=== PATIENT | female | born 1995 | race African-American/Black ===

== ENCOUNTER 2017-06-25 20:01 | Emergency (ER) | payer OTHER ==
[2017-06-25 20:09] VITALS: BP 121/63; PULSE 65; TEMP 98.4; BMI 32.7
--- NOTE | 2017-06-25 21:33 | PDOC ---
History of Present Illness - History of Present Illness Initial Comments: 06/25/17 21:55 The patient is a 22 year old female, with no significant past medical history of , who presents to the emergency department with dizziness and fatigue for 3 days. Patient stated that she has been feeling like this since three days ago, briefly stopped, and came back around 3 pm today. Patient stated that she felt tired and unable to move around with sudden onset. SHe took a nap hoping her symptoms would improve however they worsened and she came to the emergency room. Patient states pain does not worsen or improve when she changes positions from sitting to standing. Patient also states RLQ tenderness upon palpation. No noticeable rash or insect bite. Denies being in a wooded area. She denies recent fevers, chills, headache. She denies recent nausea, vomit, diarrhea or constipation. She denies recent dysuria, frequency, urgency or hematuria. She denies recent chest pain or shortness of breath. Allergies: NKA Past surgical history: None reported. Social history: Nonsmoker. Denies EtOH use and recreational drug use. Primary Care Physician: 06/25/17 22:00 <Faustina Dalton - Last Filed: 06/25/17 22:02> <Olivia Villaseñor - Last Filed: 06/26/17 03:08> - General Chief Complaint: Lightheaded Stated Complaint: LIGHTHEADED TODAY Time Seen by Provider: 06/25/17 20:03 Past History <Faustina Dalton - Last Filed: 06/25/17 22:02> - Past Medical History Other medical history: DENIES - Immunization History Immunization Up to Date: Yes - Suicide/Smoking/Psychosocial Hx Smoking History: Never smoked Have you smoked in the past 12 months: No Information on smoking cessation initiated: No Hx Alcohol Use: No Drug/Substance Use Hx: No Substance Use Type: None <Olivia Villaseñor - Last Filed: 06/26/17 03:08> - Past Medical History Allergies/Adverse Reactions: Allergies Allergy/AdvReac Type Severity Reaction Status Date / Time No Known Allergies Allergy Verified 06/25/17 20:03 Home Medications: Ambulatory Orders NK [No Known Home Medication] 08/09/16 Review of Systems - Review of Systems Comments:: 06/25/17 21:58 GENERAL/CONSTITUTIONAL: No fever or chills. No weakness. HEAD, EYES, EARS, NOSE AND THROAT: No change in vision. No ear pain or discharge. No sore throat. CARDIOVASCULAR: No chest pain or shortness of breath. RESPIRATORY: No cough, wheezing, or hemoptysis. GASTROINTESTINAL: + mild rlq tenderness upon palpation.No nausea, vomiting, diarrhea or constipation. GENITOURINARY: No dysuria, frequency, or change in urination. MUSCULOSKELETAL: No joint or muscle swelling or pain. No neck or back pain. SKIN: No rash NEUROLOGIC: No headache, vertigo, loss of consciousness, or change in strength/ sensation. ENDOCRINE: No increased thirst. No abnormal weight change. HEMATOLOGIC/LYMPHATIC: No anemia, easy bleeding, or history of blood clots. ALLERGIC/IMMUNOLOGIC: No hives or skin allergy. <Faustina Dalton - Last Filed: 06/25/17 22:02> *Physical Exam - Vital Signs Last Vital Signs Temp Pulse Resp BP Pulse Ox 98.4 F 65 16 121/63 100 06/25/17 20:05 06/25/17 20:05 06/25/17 20:05 06/25/17 20:05 06/25/17 20:05 - Physical Exam Comments: 06/25/17 21:56 GENERAL: Awake, alert, and fully oriented, in no acute distress HEAD: No signs of trauma EYES: PERRLA, EOMI, sclera anicteric, conjunctiva clear ENT: Auricles normal inspection, hearing grossly normal, nares patent, oropharynx clear without exudates. Moist mucosa NECK: Normal ROM, supple, no lymphadenopathy, JVD, or masses LUNGS: Breath sounds equal, clear to auscultation bilaterally. No wheezes, and no crackles HEART: Regular rate and rhythm, normal S1 and S2, no murmurs, rubs or gallops ABDOMEN: + Mild RLQ tenderness upon palpation. Soft, normoactive bowel sounds. No guarding, no rebound. No masses EXTREMITIES: Normal range of motion, no edema. No clubbing or cyanosis. No cords, erythema, or tenderness NEUROLOGICAL: Cranial nerves II through XII grossly intact. Normal speech, normal gait SKIN: Warm, Dry, normal turgor, no rashes or lesions noted. 06/25/17 21:58 <Faustina Dalton - Last Filed: 06/25/17 22:02> - Vital Signs Last Vital Signs Temp Pulse Resp BP Pulse Ox 98.4 F 65 16 121/63 100 06/25/17 20:05 06/25/17 20:05 06/25/17 20:05 06/25/17 20:05 06/25/17 20:05 <Olivia Villaseñor - Last Filed: 06/26/17 03:08> ED Treatment Course - LABORATORY CBC & Chemistry Diagram: 06/25/17 21:50 06/25/17 21:50 <Faustina Dalton - Last Filed: 06/25/17 22:02> - LABORATORY CBC & Chemistry Diagram: 06/25/17 21:50 06/25/17 21:50 <Olivia Villaseñor - Last Filed: 06/26/17 03:08> Medical Decision Making - Medical Decision Making Documentation has been prepared under my direction and personally reviewed by me in its entirety. I attest that this documented accurately reflects all work, treatment, procedures and medical decision making performed by me. As noted above, this 22-year-old woman without significant past medical history presents with a few day history of fatigue/lightheadedness. No other specific complaints noted. Patient describes no risk factors for occult infection such as tickborne disease/mosquito related illness. No sore throat or fever noted. There is been no myalgias/arthralgias. Exam as noted is normal. CBC/chemistry profile/urinalysis/UCG were sent. Laboratory evaluation is essentially normal. There is borderline prerenal azotemia; patient is not clinically dehydrated. Results discussed with the patient. Since patient is a college student living in a dormitory, she is at some risk for jennifer viral illness. She has been encouraged to get plenty of rest , as well as drinking plenty of fluids, eating regular meals. She should return to the emergency room if she has persistent severe symptoms. Otherwise, she should follow-up with her general medical doctor on [place], when she returns home from school <Olivia Villaseñor - Last Filed: 06/26/17 03:08> *DC/Admit/Observation/Transfer - Attestations Scribe Attestion: 06/25/17 22:02 Documentation prepared by Faustina Dalton, acting as emergency medical technician for Olivia Villaseñor MD. <Faustina Dalton - Last Filed: 06/25/17 22:02> <Olivia Villaseñor - Last Filed: 06/26/17 03:08> Diagnosis at time of Disposition: Fatigue Qualifiers: Fatigue type: unspecified Qualified Code(s): R53.83 - Other fatigue - Discharge Dispostion Disposition: HOME Condition at time of disposition: Stable - Patient Instructions Printed Discharge Instructions: DI for Fatigue Additional Instructions: Eat regular meals and drink plenty of water Try to get plenty of sleep Return to ER if you have worsening abdominal pain or experience fever/vomiting Follow-up with your general medical doctor when you return home
[2017-06-25 22:03] LABS: PH,URINE 5.5 (4.5-8); URINE APPEARANCE Clear; URINE BILIRUBIN Negative (NEGATIVE); URINE BLOOD 1+ (NEGATIVE); URINE COLOR YELLOW; URINE GLUCOSE (UA) Negative (NEGATIVE); URINE KETONE Negative (NEGATIVE); URINE LEUK ESTERASE TRACE (NEGATIVE); URINE NITRITE Negative (NEGATIVE); URINE PROTEIN Negative (NEGATIVE); URINE UROBILINOGEN 0.2 (0.2-1.0)
[2017-06-25 22:03] LABS: BASOPHIL 2.1 % (0-2.0); EOSINOPHIL 4.4 % (0-4.5); MCH 28.9 pg (25.7-33.7); MCHC 33.2 g/dl (32.0-36.0); MEAN PLT VOLUME 9.1 fl (7.5-11.1); NEUTROPHILS 47.9 % (42.8-82.8); PLATELET COUNT 258 K/MM3 (134-434); RDW 12.2 % (11.6-15.6); WHITE BLOOD COUNT 7.6 K/mm3 (4.0-10.8)
[2017-06-25 22:12] LABS: URINE WBC 0-2 (3-5)
[2017-06-25 22:22] LABS: ALBUMIN 3.9 g/dl (3.5-5.0); ALK PHOS 66 U/L (32-92); ANION GAP 5 (8-16); BILIRUBIN,TOTAL 0.2 mg/dl (0.2-1.0); CALCIUM 8.8 mg/dl (8.4-10.2); CO2 26 mmol/L (22-28); CREATININE 0.7 mg/dl (0.6-1.3); GLUCOSE,RANDOM 82 mg/dl (74-106); SGOT/AST 22 U/L (10-42); SGPT/ALT 15 U/L (10-40); TOT PROT 7.7 g/dl (6.4-8.3)
== END 2017-06-25 23:25 | disposition home or self-care (01) ==
LOC: FER 20:01
DX: R53.83 Other fatigue (principal)
CPT/HCPCS: 36415; 80053; 81003; 81015; 84703; 85025; 99281-25

== ENCOUNTER 2018-07-15 13:53 | Emergency (ER) | payer OTHER ==
[2018-07-15 14:09] VITALS: BP 114/93; PULSE 70; TEMP 97.6; BMI 31.1
[2018-07-15] MEDS ORDERED: ONDANSETRON 4 MG/2 ML VIAL IVPB ONE (14:50)
[2018-07-15] MEDS ORDERED: SODIUM CHLORIDE 1,000 ML IV ONE (14:50)
[2018-07-15] MEDS ORDERED: KETOROLAC TROMETHAMINE 30 MG/1 ML VIAL IVPUSH ONE (14:50)
--- NOTE | 2018-07-15 14:57 | PDOC ---
History of Present Illness - General Chief Complaint: Pain Stated Complaint: CRAMPS Time Seen by Provider: 07/15/18 14:44 History Source: Patient Exam Limitations: No Limitations - History of Present Illness Travel History: No Initial Comments: 07/15/18 14:50 23y F hx of bad menstrual cramps presents with complaint of cramps. pt notse she has severe cramps, is on toradol for the pain, has been controled with toradol for the past 2 years. notse sh was fine utnil yesterday, had mild ' precramps' lastnight, this morning, the pain worsened significantly, and is nintermittent, cramping, and similar to previous episodes. endorses vomiting/ nausea, denies any fever/chills, vag discharge, darrhea, melena, upper abd pain. the pain is in the suprapubic ragion and radiates b/l in her lower abd. no back pain pt currently having her menses Constitutional - no reported Fever, Chills, HEENT: no reported vision changes, sore throat Respiratory: no reported cough, sob, hemoptysis Cardiac: no reported chest pain, palpitations, light headedness, leg swelling Abd/GI: +abd pain, nausea, vomiting, no reported blood per rectum, melena, diarrhea : no reported dysuria, frequency, discharge Musculskelatal - no reported back pain, joint swelling skin - no reported bruising, erythema, rash neurological: no reported headache, numbness, focal weakness, tingling, ataxia, hematologic: no reported easy bruising, easy bleeding GENERAL: The patient is awake, alert, and fully oriented, Nontoxic - in no acute distress. HEAD: Normocephalic, atraumatic. EYES: extraocular movements intact, sclera anicteric, conjunctiva clear. ENT: Normal voice, Moist mucous membranes. NECK: Normal range of motion, supple LUNGS: Breath sounds equal, clear to auscultation bilaterally. No wheezes, no rhonchi, no rales. HEART: Regular rate and rhythm, normal S1 and S2 without murmur, rub or gallop. ABDOMEN: Soft, mild suprapubic tendernessNo guarding, no rebound. EXTREMITIES: Normal range of motion, no edema. NEUROLOGICAL: No facial assymetry, Normal speech, PSYCH: Normal mood, normal affect. SKIN: Warm, Dry, normal turgor, suspect menstrual cramps as th epain is similar to previous no focal tenderness or fever to suggest acute intrabodlminal infection such as appendicitis/diverticulitis will give pt toradol, fluids zofran willck basic labs will r/o Past History - Past Medical History Allergies/Adverse Reactions: Allergies Allergy/AdvReac Type Severity Reaction Status Date / Time No Known Allergies Allergy Verified 07/15/18 13:54 Home Medications: Ambulatory Orders Ketorolac Tromethamine [Toradol] 15 mg PO PRN PRN 07/15/18 COPD: No - Reproductive History Is Patient Now?: (DENIES) (#): 0 Para: 0 Polycystic Ovaries: Yes - Immunization History Immunization Up to Date: Yes - Suicide/Smoking/Psychosocial Hx Smoking History: Never smoked Have you smoked in the past 12 months: No Information on smoking cessation initiated: No Hx Alcohol Use: No Drug/Substance Use Hx: No Substance Use Type: None *Physical Exam - Vital Signs Last Vital Signs Temp Pulse Resp BP Pulse Ox 97.6 F 70 20 114/93 100 07/15/18 13:53 07/15/18 13:53 07/15/18 13:53 07/15/18 13:53 07/15/18 13:53 ED Treatment Course - LABORATORY CBC & Chemistry Diagram: 07/15/18 15:37 07/15/18 15:37 Medical Decision Making - Medical Decision Making 07/15/18 16:51 pt feelin gimproved UA not suggestive of UTI not abd soft nontnder no longer vomiting will have pt fu wth intake man return precautions were discussed I discussed the physical exam findings, ancillary test results and final diagnoses with the patient. I answered all of the patient's questions. The patient was satisfied with the care received and felt comfortable with the discharge plan and treatment plan. The patient will call their primary care physician within 24 hours to arrange follow-up and will return to the Emergency Department with any new, persistent or worsening symptoms. *DC/Admit/Observation/Transfer Diagnosis at time of Disposition: Menses painful - Discharge Dispostion Disposition: HOME Condition at time of disposition: Improved Decision to Admit order: No - Referrals Referrals: Eugene RUEDA [Other] - Patient Instructions Printed Discharge Instructions: DI for Dysmenorrhea Additional Instructions: Please follow up with your obgyn doctor for further evalution of your severe menstrual cramping. Return if you have worsening pain, fever/chills, vomiting, or other concerns. Print Language: OCCITAN - Post Discharge Activity
[2018-07-15] MEDS ORDERED: KETOROLAC TROMETHAMINE 30 MG/1 ML VIAL ONE (15:33)
[2018-07-15] MEDS ORDERED: ONDANSETRON 4 MG/2 ML VIAL ONE (15:33)
[2018-07-15 15:52] LABS: BASO % 0.8 % (0-2.0); EOS % 1.7 % (0-4.5); HEMATOCRIT 38.4 % (32.4-45.2); HEMOGLOBIN 12.3 GM/dl (10.7-15.3); LYMPH % 22.1 % (8-40); MCH 27.7 pg (25.7-33.7); MEAN CELL VOLUME 86.7 fl (80-96); MEAN PLT VOLUME 9.5 fl (7.5-11.1); MONO % 6.9 % (3.8-10.2); NEUT % 68.5 % (42.8-82.8); PLATELET COUNT 244 K/MM3 (134-434); RBC 4.43 M/mm3 (3.60-5.2); RDW 12.4 % (11.6-15.6)
[2018-07-15 16:00] LABS: ALK PHOS 71 U/L (32-92); ANION GAP 6 MMOL/L (8-16); BILIRUBIN,TOTAL 0.4 mg/dl (0.2-1.0); BLOOD UREA NITROGEN 7 mg/dl (7-18); CALCIUM 8.7 mg/dl (8.4-10.2); CHLORIDE 105 mmol/L (98-107); CO2 25 mmol/L (22-28); CREATININE 0.7 mg/dl (0.6-1.3); GLUCOSE,RANDOM 94 mg/dl (74-106); POTASSIUM 3.4 mmol/L (3.5-5.1); SGOT/AST 23 U/L (10-42); SGPT/ALT 18 U/L (10-40); SODIUM 136 mmol/L (136-145); TOT PROT 8.1 g/dl (6.4-8.3)
[2018-07-15 16:46] LABS: PH,URINE 8.5 (4.5-8); URINE APPEARANCE Cloudy; URINE BILIRUBIN Negative (NEGATIVE); URINE COLOR Brown; URINE GLUCOSE (UA) Negative (NEGATIVE); URINE KETONE Trace (NEGATIVE); URINE LEUK ESTERASE TRACE (NEGATIVE); URINE NITRITE Negative (NEGATIVE); URINE PROTEIN 1+ (NEGATIVE); URINE UROBILINOGEN 0.2 (0.2-1.0)
[2018-07-15 17:00] LABS: URINE RBC >100 /hpf (0-3)
== END 2018-07-15 17:49 | disposition home or self-care (01) ==
LOC: FER 13:53
PROC: 3E0333Z Introduction of Anti-inflammatory into Peripheral Vein, Percutaneous Approach (ICD-10-PCS; principal; 2018-07-15)
PROC: 3E033GC Introduction of Other Therapeutic Substance into Peripheral Vein, Percutaneous Approach (ICD-10-PCS; 2018-07-15)
PROC: 3E0337Z Introduction of Electrolytic and Water Balance Substance into Peripheral Vein, Percutaneous Approach (ICD-10-PCS; 2018-07-15)
DX: N94.6 Dysmenorrhea, unspecified (principal)
CPT/HCPCS: 36415; 80053; 81003; 81015; 84703; 85025; 99282-25; J7030

== ENCOUNTER 2019-01-17 03:42 | Emergency (ER) | payer OTHER ==
--- NOTE | 2019-01-17 03:48 | PDOC ---
History of Present Illness - General Stated Complaint: ABD PAIN Time Seen by Provider: 01/17/19 03:47 Past History - Past Medical History Allergies/Adverse Reactions: Allergies Allergy/AdvReac Type Severity Reaction Status Date / Time No Known Allergies Allergy Verified 07/15/18 13:54 Home Medications: Ambulatory Orders Ketorolac Tromethamine [Toradol] 15 mg PO PRN PRN 07/15/18 COPD: No - Reproductive History (#): 0 Para: 0 Polycystic Ovaries: Yes - Immunization History Immunization Up to Date: Yes - Suicide/Smoking/Psychosocial Hx Smoking History: Never smoked Have you smoked in the past 12 months: No Hx Alcohol Use: No Drug/Substance Use Hx: No Substance Use Type: None *DC/Admit/Observation/Transfer - Referrals Referrals: ON STAFF,NOT [Primary Care Provider] - - Patient Instructions - Post Discharge Activity
[2019-01-17] MEDS ORDERED: ACETAMINOPHEN 1000 MG/100 ML VIAL (NON FORMULARY) IVPB ONE (03:53)
[2019-01-17] MEDS ORDERED: SODIUM CHLORIDE 1,000 ML IV STA (03:53)
[2019-01-17] MEDS ORDERED: ONDANSETRON 4 MG/2 ML VIAL IVPB ONE (03:53)
[2019-01-17] MEDS ORDERED: ACETAMINOPHEN 325 MG TABLET (FP) PO ONE (03:58)
[2019-01-17] MEDS ORDERED: ONDANSETRON *ODT* 4 MG TABLET SL ONE (03:58)
[2019-01-17] MEDS ORDERED: ACETAMINOPHEN 325 MG TABLET (FP) ONE (03:59)
[2019-01-17] MEDS ORDERED: ONDANSETRON *ODT* 4 MG TABLET ONE (03:59)
--- NOTE | 2019-01-17 04:00 | PDOC ---
History of Present Illness - General Stated Complaint: ABD PAIN Time Seen by Provider: 01/17/19 03:47 - History of Present Illness Initial Comments: 01/17/19 03:55 23 yo F with h/o left ovarian cyst who p/w left lower abdominal pain, N/V. Patient reports acute onset of sharp, unremitting, right lwoer abdominal pain, beginning at 11 AM (01/16/19) with no identifiable triggers or alleviators. Not alleviated with prescription Toradol 10 mg. States that she had 3 episodes of NBNB emesis today. Patient currently with menstrual bleeding x 1 day. States that she typically has this pain around time of menstruation. 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 Wears multiple pads daily. Patient denies ERAZO, vision change, palpitations, cough, wheezing, orthopena, PND , leg swelling/pain, F,C, CP, SOB, urinary complaints, hematuria, BPR, pelvic pain/vaginal itching/irritation/discharge, diarrhea, constipation, lightheadedness, weakness, sensory changes. PMHx: as noted above ROS: as noted SHx: Denies Etoh, IVDA, tobacco use. Denies h/o or STI. Has been sexually active in past, but currently not sexually active Allergies: NKDA Past History - Past Medical History Allergies/Adverse Reactions: Allergies Allergy/AdvReac Type Severity Reaction Status Date / Time No Known Allergies Allergy Verified 07/15/18 13:54 Home Medications: Ambulatory Orders Ketorolac Tromethamine [Toradol] 10 mg PO PRN PRN 07/15/18 Cephalexin Monohydrate [Keflex -] 500 mg PO BID #13 capsule MDD 2 tab 01/17/19 COPD: No - Reproductive History (#): 0 Para: 0 Polycystic Ovaries: Yes - Immunization History Immunization Up to Date: Yes - Suicide/Smoking/Psychosocial Hx Smoking History: Never smoked Have you smoked in the past 12 months: No Hx Alcohol Use: No Drug/Substance Use Hx: No Substance Use Type: None Review of Systems - Review of Systems Comments:: 01/17/19 04:10 GENERAL/CONSTITUTIONAL: No fever or chills. No weakness. HEAD, EYES, EARS, NOSE AND THROAT: No change in vision. No ear pain or discharge. No sore throat. CARDIOVASCULAR: No chest pain or shortness of breath RESPIRATORY: No cough, wheezing, or hemoptysis. GASTROINTESTINAL: + Lower abdominal pain, nausea, vomiting. No diarrhea or constipation. GENITOURINARY: No dysuria, frequency, or change in urination. MUSCULOSKELETAL: No joint or muscle swelling or pain. No neck or back pain. SKIN: No rash NEUROLOGIC: No headache, vertigo, loss of consciousness, or change in strength/ sensation. ENDOCRINE: No increased thirst. No abnormal weight change HEMATOLOGIC/LYMPHATIC: No anemia, easy bleeding, or history of blood clots. ALLERGIC/IMMUNOLOGIC: No hives or skin allergy. *Physical Exam - Physical Exam Comments: 01/17/19 04:10 GENERAL: Awake, alert, and fully oriented, in no acute distress HEAD: No signs of trauma, normocephalic, atraumatic EYES: PERRLA, EOMI, sclera anicteric, conjunctiva clear ENT: Auricles normal inspection, hearing grossly normal, nares patent, oropharynx clear without exudates. Moist mucosa NECK: Normal ROM, supple, no lymphadenopathy, JVD, or masses LUNGS: No distress, speaks full sentences, clear to auscultation bilaterally HEART: Regular rate and rhythm, normal S1 and S2, no murmurs, rubs or gallops, peripheral pulses normal and equal bilaterally. ABDOMEN: Soft, nontender, normoactive bowel sounds. No guarding, no rebound. No masses. Neg CVA ttp. GENITOURINARY: Nml appearing external genitalia, with absent lesions. Vaginal vault with blood and clotting, or discharge. Cervical os closed. Neg CMT on BM. Neg adenexal ttp, or mass palpated.Supervised by Zulema ALFRED. EXTREMITIES : Normal inspection, Normal range of motion, no edema. No clubbing or cyanosis. NEUROLOGICAL: Cranial nerves II through XII grossly intact. Normal speech, normal gait, no focal sensorimotor deficits SKIN: Warm, Dry, normal turgor, no rashes or lesions noted Medical Decision Making - Medical Decision Making 01/17/19 04:00 23 yo F with h/o left ovarian cyst who p/w \acute onset of sharp, unremitting, left lower abdominal pain, beginning at 11 AM (01/16/19), and 3 episodes NBNB emesis. Vitals wnl, AF, A&Ox3. + Diffuse lower abdominal ttp on exam. R/o ovarian torsion, ovarian cyst rupture. Will assess for . Will consider cystitis, appendicitis, colitis, nephrolithiasis. Possible dysmenorrhea/DUB, leiomyomata, endometriosis. Will provide analgesia, fluids, antiemetic control, and reassess. ED Course: 01/17/19 05:14 Laboratory Tests 01/17/19 04:15 Urine Color Red Urine Appearance Cloudy Urine Protein 2+ H Urine Blood 3+ H Urine Nitrite Negative Ur Leukocyte Esterase 1+ H Urine WBC (Auto) 39 Treat UTI with Keflex 500 mg PO and 500 mg PO BID 01/17/19 05:24 Patient with continued lower abdominal pain. Percocet x 1 01/17/19 06:23 Pt. pain improved. Endorsed to day team. Pending TVUS. R/o torsion. Stable *DC/Admit/Observation/Transfer Diagnosis at time of Disposition: Menses painful UTI (urinary tract infection) Qualifiers: Urinary tract infection type: acute cystitis Hematuria presence: without hematuria Qualified Code(s): N30.00 - Acute cystitis without hematuria - Discharge Dispostion Condition at time of disposition: Stable - Prescriptions Prescriptions: Cephalexin Monohydrate [Keflex -] 500 mg PO BID #13 capsule MDD 2 tab - Referrals Referrals: ON STAFF,NOT [Primary Care Provider] - - Patient Instructions Printed Discharge Instructions: DI for Urinary Tract Infection (UTI), DI for Dysmenorrhea, DI for Abnormal Uterine Bleeding Additional Instructions: Please return to the emergency department with any new or worsening symptoms or concerns. Please follow up with your Machine Bobbin Winder, or primary care physician within 72 hours. Can continue to take Toradol as prescribed for pain. Please take Keflex two times a day for 7 days. - Post Discharge Activity
[2019-01-17 04:20] VITALS: BMI 34.0
[2019-01-17 04:36] LABS: EPI CELLS 7.3 /HPF (0-5/HPF); URINE APPEARANCE CLOUDY; URINE BACTERIA 166.5 /hpf (NEGATIVE); URINE BILIRUBIN NEGATIVE (NEGATIVE); URINE CASTS 7 /lpf (0-8); URINE COLOR RED; URINE GLUCOSE (UA) NEGATIVE (NEGATIVE); URINE KETONE NEGATIVE (NEGATIVE); URINE LEUK ESTERASE 1+ (NEGATIVE); URINE NITRITE NEGATIVE (NEGATIVE); URINE PROTEIN 2+ (NEGATIVE); URINE RBC 1380 /hpf (0-4); URINE UROBILINOGEN 0.2 mg/dL (0.2-1.0); URINE WBC 39 /hpf (0-5)
[2019-01-17] MEDS ORDERED: CEPHALEXIN MONOHYDRATE 500 MG CAPSULE (UD) PO ONE (05:13)
[2019-01-17] MEDS ORDERED: CEPHALEXIN MONOHYDRATE 500 MG CAPSULE (UD) ONE (05:25)
--- NOTE | 2019-01-17 06:04 | PDOC ---
Attending Attestation - Resident Resident Name: Estevan Velasquez - ED Attending Attestation I have performed the following: I have examined & evaluated the patient, The case was reviewed & discussed with the resident, I agree w/resident's findings & plan, Exceptions are as noted - HPI HPI: 01/17/19 06:36 23F pmh of Left ovarian cyst here with sudden onset of LLQ abd px at 11pm last night, px was sharp and sudden onset a/w n/v with improvement in px w/o intervention. Endorses vaginal bleeding but timing is appropriate for menstruation. Pt states that she normally gets sharp, crampy lower abdominal pain with her mensturation but that this episode is particularly intense. - Physicial Exam PE: 01/17/19 06:39 Subdued appearing, NAD, AOx3 Abd soft, +tenderness LLQ and suparpubic region exam as documented by resident - Medical Decision Making 01/17/19 06:40 Possibly pain of menstruation but given hx and character of px, will r/o ovarian torsion, hx/pe inconsistent with pid, ascending infection, consider cystitis f/u ua, upreg f/u emergent TVUS
--- NOTE | 2019-01-17 07:13 | PDOC ---
*Physical Exam - Vital Signs Last Vital Signs Temp Pulse Resp BP Pulse Ox 97.8 F 70 18 121/74 99 01/17/19 06:11 01/17/19 06:11 01/17/19 06:11 01/17/19 06:11 01/17/19 06:11 - Physical Exam Comments: 01/17/19 08:10 Awake, alert, non-toxic appearing (+) RLQ TTP on initial abdominal exam; (-) TTP w/stethoscope test ED Treatment Course - ADDITIONAL ORDERS Additional order review: Laboratory Results 01/17/19 01/17/19 04:32 04:15 Serum , Qual Negative Urine Color Red Urine Appearance Cloudy Urine pH 5.0 Ur Specific [place] 1.023 Urine Protein 2+ H Urine Glucose (UA) Negative Urine Ketones Negative Urine Blood 3+ H Urine Nitrite Negative Urine Bilirubin Negative Urine Urobilinogen 0.2 Ur Leukocyte Esterase 1+ H Urine WBC (Auto) 39 Urine RBC (Auto) 1380 Urine Casts (Auto) 7 U Epithel Cells (Auto) 7.3 Urine Bacteria (Auto) 166.5 - Medications Given in the ED: ED Medications Discontinued Medications Generic Name Dose Route Start Last Admin Trade Name Freq PRN Reason Stop Dose Admin Acetaminophen 1,000 mg 01/17/19 03:53 01/17/19 04:21 Ofirmev Injection - IVPB 01/17/19 03:54 Not Given ONCE ONE Acetaminophen 650 mg 01/17/19 03:58 01/17/19 04:20 Tylenol - PO 01/17/19 03:59 650 mg ONCE ONE Administration Cephalexin HCl 500 mg 01/17/19 05:13 01/17/19 05:27 Keflex - PO 01/17/19 05:14 500 mg ONCE ONE Administration Sodium Chloride 1,000 mls @ 1,000 mls/hr 01/17/19 03:53 01/17/19 07:01 Normal Saline - IV 01/17/19 04:52 Not Given ASDIR STA Ondansetron HCl 4 mg 01/17/19 03:53 01/17/19 04:21 Zofran Injection IVPB 01/17/19 03:54 Not Given ONCE ONE Ondansetron HCl 4 mg 01/17/19 03:58 01/17/19 04:20 Zofran Odt - SL 01/17/19 03:59 4 mg ONCE ONE Administration Oxycodone/Acetaminophen 1 combo 01/17/19 05:24 01/17/19 05:28 Percocet 5/325 - PO 01/17/19 05:25 1 combo ONCE ONE Administration Medical Decision Making - Medical Decision Making 01/17/19 07:12 Patient signed out by Dr. Velasquez (Resident) and Dr. Albert (Attending) 23 year old female with abdominal pain. B-HCG negative, UA shows 3+ blood ( patient currently on menstrual cycle). No adenxal tenderness on PE. TVUS pending - media liaison officer ultrasound contacted @ 5:30 a.m., en route 01/17/19 07:26 Patient reassessed @ bedside. Resting comfortably. Friend @ bedside RLQ TTP on initial belly exam, negative stethoscope test 01/17/19 08:01 U/S in hospital 01/17/19 08:11 Patient @ U/S 01/17/19 10:14 Patient ambulatory, improved requesting discharge home 01/17/19 10:28 TVUS negative for torsion, shows R ovarian cyst (2.1 x 1.7 cm) known to patient as well as fibroid (7mm) uterus. Thickened endometrial stripe Will give patient a copy of TVUS and discharge home with instructions to follow-up with social science manager or PMD for further evaluation. Patient states she has an OB-Thermostat Machine Tender in [place] with whom she has established care. I discussed the physical exam findings, ancillary test results and final diagnoses with the patient. I answered all of the patient's questions. The patient was satisfied with the care received and felt comfortable with the discharge plan and treatment plan. The patient will return to the Emergency Department with any new, persistent or worsening symptoms. *DC/Admit/Observation/Transfer Diagnosis at time of Disposition: Menses painful UTI (urinary tract infection) Qualifiers: Urinary tract infection type: acute cystitis Hematuria presence: without hematuria Qualified Code(s): N30.00 - Acute cystitis without hematuria - Discharge Dispostion Disposition: HOME Condition at time of disposition: Good - Prescriptions Prescriptions: Cephalexin Monohydrate [Keflex -] 500 mg PO BID #13 capsule MDD 2 tab - Referrals Referrals: ON STAFF,NOT [Primary Care Provider] - - Patient Instructions Printed Discharge Instructions: DI for Urinary Tract Infection (UTI), DI for Dysmenorrhea, DI for Abnormal Uterine Bleeding Additional Instructions: Please return to the emergency department with any new or worsening symptoms or concerns. We have sent an antibiotic to your pharmacy. Please take the entire antibiotic course as prescribed. Please follow up with your Grinder Tender, or primary care physician within 72 hours. We have provided a copy of your ultrasound please take this to your appointment. Your care is not complete until you are evaluated by your OB-Thermostat Machine Tender or PCP. Can continue to take Toradol as prescribed for pain. Please take Keflex two times a day for 7 days. - Post Discharge Activity
[2019-01-17 11:03] VITALS: BP 101/57; PULSE 57; TEMP 98
== END 2019-01-17 11:04 | disposition home or self-care (01) ==
LOC: JER 03:42
DX: N39.0 Urinary tract infection, site not specified (principal); N94.6 Dysmenorrhea, unspecified
CPT/HCPCS: 36415; 76830-TC; 81003; 84703; 87086; 99282-25; Q0162

== ENCOUNTER 2019-06-16 10:56 | Emergency (ER) | payer OTHER | END 2019-06-16 12:24 | disposition home or self-care (01) | LOC: FER 10:56 ==

== ENCOUNTER 2019-09-10 10:54 | Emergency (ER) | payer OTHER ==
[2019-09-10 11:04] VITALS: BMI 34.5
[2019-09-10] MEDS ORDERED: KETOROLAC TROMETHAMINE 30 MG/1 ML VIAL IVPUSH ONE (11:36)
[2019-09-10] MEDS ORDERED: ONDANSETRON 4 MG/2 ML VIAL IVPUSH ONE (11:36)
[2019-09-10] MEDS ORDERED: SODIUM CHLORIDE 0.9% 500 ML INFUS.BAG IV ONE (11:36)
[2019-09-10] MEDS ORDERED: KETOROLAC TROMETHAMINE 30 MG/1 ML VIAL ONE (11:41)
[2019-09-10] MEDS ORDERED: ONDANSETRON 4 MG/2 ML VIAL ONE (11:42)
--- NOTE | 2019-09-10 11:45 | PDOC ---
History of Present Illness - General Chief Complaint: Pain Stated Complaint: ABD PAIN/VOMITING Time Seen by Provider: 09/10/19 11:17 History Source: Patient Exam Limitations: No Limitations - History of Present Illness Initial Comments: 09/10/19 11:39 24-year-old female with history of uterine fibroids and ovarian cysts presents complaining of pelvic cramping since this morning associated with nausea vomiting and diarrhea. Reports inability to tolerate fluids this morning. Menses began today, denies passing clots, changes pads every 4-6 hours. Reports she usually has uterine cramping every month during her menses however today cramping has worsened. Denies history of STI, has not been sexually active in over 6 months, denies fever, chills, back pain, urinary symptoms, chest pain, shortness of breath or any other complaint. Patient is a student at [employer], lives in [place] where her VEHICLE OPERATOR TECHNICIAN doctor is located. She plans to follow-up with VEHICLE OPERATOR TECHNICIAN this month during school break. Patient has not taken pain medication today. ROS: GENERAL/CONSTITUTIONAL: No fever, chills, weakness, dizziness HEAD, EYES, EARS, NOSE AND THROAT: No changes in vision, No ear pain or discharge, No sore throat CARDIOVASCULAR: No chest pain RESPIRATORY: No shortness of breath or cough GASTROINTESTINAL: Positive lower abdominal cramping, nausea, vomiting, diarrhea GENITOURINARY: No dysuria MUSCULOSKELETAL: No neck or back pain SKIN: No rash NEUROLOGIC: No headache, vertigo, loss of consciousness, or loss of sensation PE: GENERAL: well-appearing, NAD HEAD: NCAT EYES: Pupils equal, round and reactive to light, sclera anicteric, conjunctiva clear ENT: pharynx: no erythema, no exudate, uvula midline NECK: supple CHEST: nontender RESP: clear, no w/r/r CARDIO: rrr, no m/g/r ABD: +BS, soft, nontender, non distended BACK: no midline spinal ttp, no CVAT EXTREMITIES: Normal range of motion, no edema NEUROLOGICAL: Normal speech, normal gait SKIN: Warm, Dry 09/10/19 13:22 Is this a multiple visit Asthma Patient?: No Past History - Past Medical History Allergies/Adverse Reactions: Allergies Allergy/AdvReac Type Severity Reaction Status Date / Time No Known Allergies Allergy Verified 09/10/19 11:00 Home Medications: Ambulatory Orders NK [No Known Home Medication] 09/10/19 COPD: No Other medical history: OVARIAN CYST - Reproductive History (#): 0 Para: 0 Polycystic Ovaries: Yes - Immunization History Td Vaccination: Yes TDAP Vaccination: Yes Immunization Up to Date: Yes - Psycho Social/Smoking Cessation Hx Smoking History: Never smoked Have you smoked in the past 12 months: No Information on smoking cessation initiated: No Hx Alcohol Use: No Drug/Substance Use Hx: No Substance Use Type: None *Physical Exam - Vital Signs Last Vital Signs Temp Pulse Resp BP Pulse Ox 98.0 F 66 18 106/67 100 09/10/19 11:01 09/10/19 11:01 09/10/19 11:01 09/10/19 11:01 09/10/19 11:01 ED Treatment Course - LABORATORY CBC & Chemistry Diagram: 09/10/19 12:18 09/10/19 12:18 Medical Decision Making - Medical Decision Making 09/10/19 11:45 24-year-old female with history of ovarian cyst, uterine fibroids, menses began today presents complaining of lower abdominal cramping with nausea, vomiting, diarrhea and inability to tolerate fluids. Denies passing clots, changes her pads every 4-6 hours. Did not take any pain medication today. Seen at this ED in May 2019 for similar symptoms. Labs Urine IV fluids IV Toradol IV Zofran Reassess 09/10/19 13:24 Labs reviewed Patient's cramping and nausea have resolved after IV Toradol and Zofran Stable for discharge Note for school provided Discharge - Discharge Information Problems reviewed: Yes Clinical Impression/Diagnosis: Painful menstruation Condition: Stable Disposition: HOME - Admission No - Follow up/Referral - Patient Discharge Instructions Additional Instructions: You may take ibuprofen 600 mg every 6 hours as needed for abdominal cramping You must follow-up with your him analyst this month Return to emergency department if you develop fever, chills, worsening abdominal pain, urinary complaints, back pain or worsening symptoms. - Post Discharge Activity Work/Back to School Note: Back to School
--- NOTE | 2019-09-10 11:47 | PDOC ---
*Physical Exam - Vital Signs Last Vital Signs Temp Pulse Resp BP Pulse Ox 98.0 F 66 18 106/67 100 09/10/19 11:01 09/10/19 11:01 09/10/19 11:01 09/10/19 11:01 09/10/19 11:01 - Physical Exam 09/10/19 11:47 The patient was examined by []LUIZ BUSH under my direct supervision. I personally evaluated the patient. I concur with the above findings and the plan of care. ED Treatment Course - LABORATORY CBC & Chemistry Diagram: 09/10/19 12:18 09/10/19 12:18 Discharge - Discharge Information Problems reviewed: Yes Clinical Impression/Diagnosis: Painful menstruation Condition: Stable Disposition: HOME - Follow up/Referral - Patient Discharge Instructions Additional Instructions: You may take ibuprofen 600 mg every 6 hours as needed for abdominal cramping You must follow-up with your nuclear fuel enrichment technician this month Return to emergency department if you develop fever, chills, worsening abdominal pain, urinary complaints, back pain or worsening symptoms. - Post Discharge Activity Work/Back to School Note: Back to School
[2019-09-10 12:47] LABS: EOS % 2.3 % (0-4.5); HEMATOCRIT 37.7 % (32.4-45.2); HEMOGLOBIN 12.6 GM/dL (10.7-15.3); LYMPH % 23.2 % (8-40); MCH 28.6 pg (25.7-33.7); MCHC 33.4 g/dl (32.0-36.0); MEAN CELL VOLUME 85.7 fl (80-96); MEAN PLT VOLUME 9.9 fl (7.5-11.1); MONO % 8.2 % (3.8-10.2); NEUT % 65.3 % (42.8-82.8); PLATELET COUNT 247 K/MM3 (134-434); RDW 13.5 % (11.6-15.6); WHITE BLOOD COUNT 5.2 K/mm3 (4.0-10.0)
[2019-09-10 12:59] LABS: ALBUMIN 3.6 g/dl (3.4-5.0); BILIRUBIN,TOTAL 0.2 mg/dL (0.2-1); BLOOD UREA NITROGEN 9.6 mg/dL (7-18); CALCIUM 8.7 mg/dL (8.5-10.1); CREATININE 0.7 mg/dL (0.55-1.3); TOT PROT 8.1 g/dl (6.4-8.2)
[2019-09-10 13:45] VITALS: BP 107/58; PULSE 85; TEMP 97.9
== END 2019-09-10 13:46 | disposition home or self-care (01) ==
LOC: JER 10:54
PROC: 3E0333Z Introduction of Anti-inflammatory into Peripheral Vein, Percutaneous Approach (ICD-10-PCS; principal; 2019-09-10)
PROC: 3E033GC Introduction of Other Therapeutic Substance into Peripheral Vein, Percutaneous Approach (ICD-10-PCS; 2019-09-10)
DX: D21.9 Benign neoplasm of connective and other soft tissue, unspecified (principal)
CPT/HCPCS: 36415; 80053; 84703; 85025; 99283-25

== ENCOUNTER 2019-12-06 04:05 | Emergency (ER) | payer OTHER ==
[2019-12-06 05:05] VITALS: BMI 33.3
[2019-12-06 07:13] VITALS: TEMP 98.6
--- NOTE | 2019-12-06 07:46 | PDOC ---
History of Present Illness - General Chief Complaint: Pain Stated Complaint: ABD PAIN Time Seen by Provider: 12/06/19 07:33 - History of Present Illness Initial Comments: 12/06/19 07:59 24 yo F PMH dysmenorrhea, L ovarian cyst, presenting with dysmenorrhea. States that her period began this morning, and she developed her normal mentrual cramps accordingly. 06/10, throbbing, associated with nausea w/o vomiting; nausea now resolved, but ongoing L sided abdominal pain. Patient notes that her PCP and OBGYN are in [place], and she is currently in the area for school at [employer]. She ran out of her toradol 10mg q6hr last month. Denies CP, SOB, urinary changes, ERAZO, fevers/chills. Past History - Past Medical History Allergies/Adverse Reactions: Allergies Allergy/AdvReac Type Severity Reaction Status Date / Time No Known Allergies Allergy Verified 12/06/19 05:01 Home Medications: Ambulatory Orders Ketorolac Tromethamine [Toradol] 10 mg PO Q6H PRN #5 tablet 12/06/19 COPD: No - Reproductive History (#): 0 Para: 0 Polycystic Ovaries: Yes - Immunization History Td Vaccination: Yes TDAP Vaccination: Yes Immunization Up to Date: Yes - Psycho Social/Smoking Cessation Hx Smoking History: Never smoked Have you smoked in the past 12 months: No Information on smoking cessation initiated: No Hx Alcohol Use: No Drug/Substance Use Hx: No Substance Use Type: None Review of Systems - Review of Systems Comments:: 12/06/19 08:38 GENERAL/CONSTITUTIONAL: denies fever, chills, diaphoresis, generalized weakness, malaise, loss of appetite, weight change HEAD, EYES, EARS, NOSE AND THROAT: denies rhinorrhea, nasal congestion, throat pain, throat swelling, difficulty swallowing, mouth swelling, ear pain, eye pain, visual changes NEUROLOGIC: denies headache, focal weakness or paresthesias, dizziness, unsteady gait, seizure, mental status changes, bladder or bowel incontinence CARDIOVASCULAR: denies chest pain, syncope, palpitations, irregular heart rate, lightheadedness, peripheral edema RESPIRATORY: denies cough, shortness of breath, dyspnea with exertion, orthopnea, wheezing, stridor, hemoptysis GASTROINTESTINAL: endorses nausea without vomiting and L sided abdominal pain. Denies abdominal pain, abdominal distension, diarrhea, constipation, melena, hematochezia GENITOURINARY: denies dysuria, frequency, urgency, hesitancy, hematuria, flank pain, genital pain MUSCULOSKELETAL: denies myalgia, arthralgia, joint swelling, back pain, neck pain SKIN: denies rash, itching, pallor HEMATOLOGIC/IMMUNOLOGIC: denies easy bleeding, easy bruising, lymphadenopathy, frequent infections ENDOCRINE: denies unexplained weight gain, unexplained weight loss, heat intolerance, cold intolerance PSYCHIATRIC: denies anxiety, depression, suicidal or homicidal ideation, hallucinations *Physical Exam - Vital Signs Last Vital Signs Temp Pulse Resp BP Pulse Ox 98.6 F 94 H 18 107/72 98 12/06/19 07:11 12/06/19 07:11 12/06/19 07:11 12/06/19 07:11 12/06/19 07:11 - Physical Exam 12/06/19 08:39 Gen: well-developed, well-nourished, NAD Neuro: AAOX4, CN II-XII intact, FTN intact, EOMI, PERRLA, 5/5 strength, SILT HEENT: atraumatic, normocephalic Neck: trachea midline, supple CV: regular rate, regular rhythm, no murmurs, rubs, or gallops Pulm: CTA b/l, no wheezing Abd: soft, non-distended, non-tender MSK: full ROM, intact pulses Extr: no edema, no deformities Skin: warm, dry Medical Decision Making - Medical Decision Making 12/06/19 07:56 Low concern for ovarian torsion considering lack of waxing waning symptoms and identical symptomology of the patient's normal menstrual pain. - Urine - acetaminophen 650mg - reassess - likely dc with short script of patient's toradol Discharge - Discharge Information Problems reviewed: Yes Clinical Impression/Diagnosis: Menstrual cramps - Additional Discharge Information Prescriptions: Ketorolac Tromethamine [Toradol] 10 mg PO Q6H PRN #5 tablet PRN Reason: Pain - Follow up/Referral Referrals: ON STAFF,NOT [Primary Care Provider] - - Patient Discharge Instructions Patient Printed Discharge Instructions: DI for Dysmenorrhea Additional Instructions: You were seen with menstrual cramps. Your urine was negative, and your pain improved with medication. Please take toradol every 6 hours as needed for pain; you may also use ibuprofen/acetaminophen. Follow up with your primary care doctor and OBGYN. Return to the ED if you develop worsening symptoms. - Post Discharge Activity
[2019-12-06] MEDS ORDERED: ACETAMINOPHEN 325 MG TABLET (FP) PO ONE (07:58)
[2019-12-06] MEDS ORDERED: ACETAMINOPHEN 325 MG TABLET (FP) ONE (08:06)
[2019-12-06] MEDS ORDERED: KETOROLAC TROMETHAMINE 10 MG TABLET PO ONE (08:37)
--- NOTE | 2019-12-06 08:41 | PDOC ---
Attending Attestation - Resident Resident Name: Gabriel Mckenna - ED Attending Attestation I have performed the following: I have examined & evaluated the patient, The case was reviewed & discussed with the resident, I agree w/resident's findings & plan, Exceptions are as noted - HPI HPI: 12/06/19 08:38 24-year-old female with likely PCOS presents with lower abdominal cramping and nausea consistent with previous episodes of menstrual cramping. Patient presents to the ER requesting Toradol which she has taken in the past effectively treating her menstrual cramps. Patient endorses that she ran out of her medications currently. Patient denies vomiting/dysuria/hematuria - Physicial Exam PE: 12/06/19 08:40 Patient awake and alert, obese, in no significant distress Normocephalic, atraumatic PERRLA, EOMI no scleral icterus cta rrr Abdomen soft, nontender, nondistended, no guarding rebound - Medical Decision Making 12/06/19 08:41 24-year-old female presents with suprapubic pain and nausea consistent with menstrual cramping. Serial exams reveal no focal tenderness. Appendicitis highly unlikely. Patient is UCG negative. Will administer Toradol, will discharge.
[2019-12-06 09:24] VITALS: BP 110/47; PULSE 60
== END 2019-12-06 09:25 | disposition home or self-care (01) ==
LOC: JER 04:05
DX: N94.6 Dysmenorrhea, unspecified (principal)
CPT/HCPCS: 84703; 99283-25